=== PATIENT | female | born 1985 | race Caucasian/White ===

== ENCOUNTER 2022-03-20 00:17 | Day surgery (SDC) | payer BC, SELFPAY ==
--- NOTE | 2022-03-12 14:45 | PC.NURSE ---
Report to the Outpatient Waiting Room, entrance under the green pavilion located off [facility], at time _0600_ on date _03/20/22__. Planned Procedure Time: _0730_. Time changes happen often and if your time is changed the preop area will call you the afternoon before. - You and your visitor will be asked to self-screen and do not enter if you have any COVID symptoms. - We encourage only one visitor and NO visitors under age 16 are allowed at this time. Your visitor will receive communication by the phone number that is given day of service. - The patient visitor is requested to social distance or may leave the building when not with patient due to restrictions. - A mask is required within the hospital. Patients may have clear liquids (water, carbonated beverages, clear teas, apple juice) until 3 hours prior to surgery with a maximum of 20 ounces. - No food from midnight until time of surgery - Infants may have breast milk until 4 hours before surgery, infant formula 6 hours prior to surgery. - Children will be allowed to drink immediately following surgery. If applicable, please bring a bottle or sippy cup to assist with drinking. Juice, water, soda, and popsicles are readily available. For infants on formula, please bring formula the day of surgery. Pacifiers are allowed. Take the following medications with a SIP of water the morning of surgery: Medications to discontinue per physician __vitamins and supplements 3 days prior____ Date to take last dose Please no make-up, nail welsh, hairspray, perfume, deodorant, or body powder the day of surgery. No jewelry (including any body piercings) or valuables the day of surgery, leave them at home. Please take a shower or bath the night before, or the morning of, surgery with an antibacterial soap. Wear comfortable, loose fitting clothing. Children are encouraged to wear pajamas. - Jewelry must be removed prior to entering the operating room. Rings and piercings that are not removed may be cut off. - The hospital will not accept responsibility for valuables. - Please leave all valuables, including medications, at home the day of surgery. If you are going home after surgery, a licensed concrete truck driver must drive you home. - NO public transportation without another adult. - We recommend that an adult stay with you for 24 hours following discharge. - We also recommend that you do not drive, make important decision, drink alcoholic beverages, or take any drugs that were not prescribed by your health care provider for at least 24 hours after your discharge time. For Pediatric surgeries, we recommend two adults accompany the child home. Follow any additional instructions given to you from your surgeon. If you or anyone in your household have experienced Covid symptoms in the past week, please notify your surgeon or the nurse liaison at the phone number below for possible testing. Telephone instructions given to _patient_and asked if any additional questions and then verbalized understanding. Patient advised to call surgeon office or pre surgery nurse liaison [phone] if any additional questions.
[2022-03-12 14:59] VITALS: BMI 31.1
[2022-03-20] VITALS (9 sets, daily range): BP systolic 111–131; BP diastolic 58–68; PULSE 68–103; RESP 12–20; TEMP 36.3–36.9; O2SAT 92–100; BMI 31.5
[2022-03-20] MEDS: GABAPENTIN 300 MG CAPSULE PO (06:45)
[2022-03-20] MEDS: ACETAMINOPHEN 500 MG TABLET 1000 MG PO (06:45)
--- NOTE | 2022-03-20 07:02 | WPDANESEPPF ---
Anes - Initial Pre Proc Eval Procedure: Operation Date: 03/20/22 07:30 Proposed Procedures p Diagnostic Laparoscopy, Bilateral Laparoscopic Salpingectomy - Alberta Bolaños DO s Hysteroscopy Dilation and Curettage with Novasure Endometrial Ablation - Alberta Bolaños DO Date/Time: 03/20/22 07:02 Surgeon: Alberta Bolaños DO Pre Op Diagnosis: desires sterilization, heavy bleeding Patient Data Age: 36 Gender: F Height: 1.73 m Weight: 94 kg Last Vital Signs Temp 36.9 C 03/20/22 06:20 Pulse 84 03/20/22 06:20 Resp 14 03/20/22 06:20 BP 131/62 03/20/22 06:20 Pulse Ox 100 03/20/22 06:20 O2 Del Method Room Air 03/20/22 06:20 Allergies Allergy/AdvReac Type Severity Reaction Status Date / Time No Known Allergies Allergy Verified 03/20/22 06:21 Home Medications Medication Instructions Recorded Confirmed Type drospirenone 3 mg-ethinyl 1 tablet PO DAILY 03/12/22 03/12/22 History estradiol 0.03 mg tablet Patient hx anesthesia problems: none Family hx anesthesia problems: none Results Review: All pre-operative results and documents have been reviewed as part of the pre-operative evaluation. [facility] Social History Social History Years smoked: 5 Smoking status: Former smoker Tobacco type: cigarettes Alcohol intake: current Drinks per week: 5 Alcohol use details: Beer Substance use: never Substance use type: does not use Last use: 2017 Living arrangements: with family Spiritual care concerns: No Anes - Eval Final PreProcedure Day of Procedure 03/20/22 07:02 Patient weight: obese Heart: regular rate and rhythm Lungs: clear to auscultation and normal air movement Airway: Mallampati scale class II Neurological: alert and oriented Last oral intake: >/= 8 hours ASA classification: II Emergent: no Anesthetic plan: proceed Anesthesia type and monitoring: general ETT Results Review: All pre-operative results and documents have been reviewed as part of the pre-operative evaluation. Informed Consent: The patient's anesthetic plan and its attendant risks and benefits were discussed with the patient/family/POA. Questions were solicited and answers provided to the satisfaction of the patient/family/POA.
[2022-03-20] MEDS: LACTATED RINGERS 1,000 ML 30 ML IV CONT ×2 (07:05→08:39)
--- NOTE | 2022-03-20 07:19 | PM.IMHP ---
H&P: HPI History of Present Illness Date/Time: 03/20/22 07:19 Chief Complaint: Desires sterilization and improvement in her periods Narrative: Patient presents for diag lap, BS, hysteroscopy, DC, endometrial ablation for undesired fertility and heavy periods. Review of Systems Review of Systems: All systems reviewed & are unremarkable except as noted in HPI and below [facility] Social History Social History Years smoked: 5 Smoking status: Former smoker Tobacco type: cigarettes Alcohol intake: current Drinks per week: 5 Alcohol use details: Beer Substance use: never Substance use type: does not use Last use: 2017 Living arrangements: with family Spiritual care concerns: No Meds Home Medications and Allergies Home Medications Medication Instructions Recorded Confirmed Type drospirenone 3 mg-ethinyl 1 tablet PO DAILY 03/12/22 03/12/22 History estradiol 0.03 mg tablet Allergies Allergy/AdvReac Type Severity Reaction Status Date / Time No Known Allergies Allergy Verified 03/20/22 06:21 Vital Signs Vital Signs - 24 hr 03/20/22 06:20 Temperature 36.9 C Pulse Rate 84 Respiratory Rate 14 Blood Pressure 131/62 Pulse Oximetry 100 Oxygen Delivery Room Air Exam Const: General: comfortable and no acute distress Eyes: General: appearance normal, both eyes and all related structures Resp: Effort & Inspection: normal respiratory effort Cardio: Rate: regular rate Rhythm: regular rhythm GI: GI Palp: Yes Soft to palpation Auscultation: normal bowel sounds Skin: General skin exam: normal color and no rashes or lesions noted Neuro: General: gait normal Speech: normal speech Motor exam (neuro): 5/5 motor strength present throughout Psych: Mental Status: mental status grossly normal Assessment and Plan Assessment and plan (1) Sterilization: Code(s): Z30.2 - Encounter for sterilization Status: Acute (2) Abnormal uterine bleeding: Code(s): N93.9 - Abnormal uterine and vaginal bleeding, unspecified Status: Acute Plan Diag lap, bilateral salpingectomy, hysteroscopy, D&C, endometrial ablation
--- NOTE | 2022-03-20 07:22 | WPDHPUPDATE1 ---
History and Physical Update Update Date/Time: 03/20/22 07:22 History and Physical has been reviewed, including an updated exam of the patient. There are NO changes in the patient's condition. Risks, benefits, and alternatives have been discussed and questions answered. Patient agrees to proceed with procedure.
[2022-03-20] MEDS: BUPIVACAINE/EPINEPHRINE 0.25% 50 ML VIAL 10 ML INFILTRATE (08:03)
--- NOTE | 2022-03-20 08:26 | SUR.OPER ---
Novasure settings; Length 5, width 3, power 83, time 108 seconds
--- NOTE | 2022-03-20 08:35 | W.PM.PROC2 ---
Procedure Note - Detailed Date of Procedure 03/20/22 Pre-op Diagnosis desires sterilization, heavy bleeding Post-op Diagnosis Other (right ovarian cyst) Procedure Performed Diagnostic laparoscopy, bilateral salpingectomy, drainage of right ovarian cyst. Hysteroscopy, D&C, endometrial ablation. Surgeon Alberta Bolaños DO [employer] Anesthesia General Indications Undesired fertility Heavy menstrual bleeding (AUB) Findings Normal-appearing vulva, vaginal canal. Medium-sized cervix. Uterus sounded to 8 cm. Internally, the liver and bowel were grossly normal. The right ovary contained a simple cyst. The tubes, uterus, bladder flap and posterior cul-de-sac were all completely normal. Within the endometrial cavity there was a normal shape and contour noted. Both tubal ostia were visualized. Description of Procedure The patient was taken to the operating room she was placed under general anesthesia. She was prepped and draped in the normal sterile fashion in a dorsal lithotomy position. No preoperative antibiotics were given as they were not indicated. After a time-out was performed, speculum was placed in the cervix was visualized. A sponge stick was placed. Gloves were changed and attention was then turned to the abdomen. The skin above the umbilicus was grasped with 2 penetrating towel clamps and the area was injected with local anesthetic. A small incision was made and a Veress needle was introduced. Resistance was noted at the fascia that seemed abnormally high, therefore the Veress needle was removed and the tip appeared to be bent. This was removed the device was noted to be intact. A direct entry was then attempted and successful.The abdomen was insufflated to 15 mm Hg under direct visualization. Survey of the abdomen revealed the above mention findings and no evidence of bowel or vascular injury. The patient was then placed in steep Trendelenburg position. Additional 5 mm port sites in the right and left lower quadrants were identified, injected and incised. 5 mm trocars were introduced under direct visualization. The simple cyst noted on the right ovary was drained and clear fluid extruded from it. The right tube was then elevated and was cauterized and transected off using the LigaSure. It was then passed off through the emergency veterinary assistant port. The procedure was repeated in an identical fashion on the left-hand side. Thorough survey of the posterior cul-de-sac, bladder flap and abdomen revealed no evidence of adhesions or abnormal lesions. The instruments and trocars were removed and the gas was allowed to escape. The abdominal incisions were closed with 4-0 monocryl and steri strips. Attention was then turned to the hysteroscopy portion of the procedure. Sponge stick was removed and the cervix was visualized with a speculum. The posterior lip was grasped with a single-tooth tenaculum and the cervix was sequentially dilated up to accommodate the hysteroscope. Scope was introduced and a survey of the cavity revealed the above-mentioned findings along with the measurements as listed above. The uterine length was noted to be 5 cm, the cervix was 3 cm. A thorough curettage of the cavity was performed and a moderate amount of tissue was retrieved. The NovaSure was then introduced. The cavity length was 5 cm, the cavity width was 3 cm and the device was activated for 1 minute 8 seconds following a successful cavity integrity test. The device was then retracted and allowed to cool. It was removed. The speculum and tenaculum were removed. The puncture sites were noted to be hemostatic. All blood clots and fluid were wiped clean from the vaginal canal. The patient was taken to the recovery room in stable condition. All instrument and sponge counts were correct at the conclusion of the procedure. Estimated Blood Loss 10 IV Fluids 1,000 Drains No Packing No Pathology Yes Condition Stable Disposition PACU
[2022-03-20] MEDS: ONDANSETRON INJ 4 MG/2 ML VIAL IV PUSH (09:16)
[2022-03-20] MEDS: fentaNYL CITRATE INJ (*CRX) 100 MCG/2 ML VIAL 25 MCG IV PUSH (09:24)
== END 2022-03-20 10:30 | disposition home or self-care (01) ==
PROVIDERS: Visit Provider Obstetrics & Gynecology Gynecologic Oncology
PROC: (CPT 49320; principal; 2022-03-20 07:30)
PROC: 0U5B8ZZ Destruction of Endometrium, Via Natural or Artificial Opening Endoscopic (ICD-10-PCS; CPT 58563; 2022-03-20 07:30)
DX: Z30.2 Encounter for sterilization (principal); N93.9 Abnormal uterine and vaginal bleeding, unspecified; N83.201 Unspecified ovarian cyst, right side; Z87.891 Personal history of nicotine dependence; E66.9 Obesity, unspecified; Z68.31 Body mass index [BMI] 31.0-31.9, adult
CPT/HCPCS: 58563; 58661; 58662; 88302; 88305; A9270; J1100; J2250; J2405; J2704; J2710; J3010; J7120